=== PATIENT | female | born 2005 | race Caucasian/White ===

== ENCOUNTER 2023-09-11 19:02 | Emergency (ER) | payer MEDICAID, SELFPAY ==
[2023-09-11 19:38] VITALS: BP 125/75; PULSE 66; RESP 18; TEMP 36.9; O2SAT 99; BMI 36.4
--- NOTE | 2023-09-11 19:43 | PC.NURSE ---
checked on patient no needs at this time
--- NOTE | 2023-09-11 19:51 | [facility].EDGENADL ---
Discharge Plan Disposition Patient Disposition: Home, Self-Care Condition: Good Prescriptions Prescriptions: No Action No Known Home Medications Referrals Follow up/Referrals: Provider,Referral, MD [Primary Care Provider] - See instructions Activity Restrictions/Add. Instructions Additional Instructions/Restrictions: You were evaluated in the emergency department today. Please take Tylenol at home as needed for pain. Follow-up with your primary care provider. Also follow-up with [facility]. Make sure that you are staying hydrated. Return to the emergency department for new or worsening symptoms. Clinical Impressions Clinical Impression: Migraine Instructions Patient Instructions: DI for Migraine Discharge ED Provider: Ana Rosa Gomez General Adult HPI General Chief complaint: Headache Stated complaint: bad migraines Time Seen by Provider: 09/11/23 19:38 Mode of Arrival: Ambulatory Limitations: No Limitations Description of Symptoms (Recalled from ER Triage Doc. by RN): 17 year old female with complaints of migraine for the last week. States pain is on right side frontal area. Patient also c/o right sided abdominal pain, had a positive test on the of this month. History of Present Illness HPI narrative: This patient is a 17-year-old female with history of migraines who notes that she just recently had a positive test at home presenting to the emergency department with concern for 1 week of migraine. She states that it feels similar to her prior migraines. Her migraines are always on the right side frontal area. She also states she has had mild right upper abdominal pain with no fevers, chills, nausea, vomiting, or other concerns. No new symptoms, such as new vision changes, numbness, tingling, weakness, or other concerns. Patient states she ran out of medications at home that she had for her migraine. Related Data Home Medications Medication Instructions Recorded Confirmed No Known Home Medications 09/11/23 09/11/23 Allergies Allergy/AdvReac Type Severity Reaction Status Date / Time No Known Allergies Allergy Verified 09/11/23 19:46 [facility] Disclaimer: The information contained in this section may have been updated after the patient was seen, as this information can be updated by other users. Social History Smoking Status: Never smoker alcohol intake: never current occupational status: employed Travel in the last 8 weeks: None ROS Obtained: Yes All systems reviewed & no additional complaints except as documented Physical Exam General General appearance: alert and in no apparent distress Head Head exam: atraumatic and normocephalic Eye Eye exam: Present normal appearance, PERRL and EOMI ENT ENT exam: Present normal exam, normal oropharynx, mucous membranes moist and normal external ear exam Neck Neck exam: Present normal inspection, full ROM and trachea midline; Absent tenderness Chest Chest inspection: Present normal inspection and symmetric chest wall rise; Absent tenderness Respiratory Respiratory exam: Present normal lung sounds bilaterally; Absent respiratory distress, wheezes, stridor or accessory muscle use Cardiovascular Cardiovascular exam: Present regular rate and normal rhythm Abdominal Exam Abdominal exam: Present soft; Absent distention, tenderness or guarding Extremities Exam Extremities exam: Present normal inspection, full ROM and normal capillary refill; Absent tenderness or edema Back Exam Back exam: Present normal inspection and full ROM; Absent tenderness Neurological Exam Neurological exam: Present alert, oriented X3, CN II-XII intact and normal gait; Absent motor sensory deficit Psychiatric Psychiatric exam: Present normal affect and normal mood Skin Skin exam: Present warm and dry Medical Decision Making Medical Records Medical records reviewed: Yes I reviewed
[2023-09-11 20:40] LABS: Coronavirus 19, PCR Not Detected (NotDetected); Influenza A, PCR Not Detected (NotDetected); Influenza B, PCR Not Detected (NotDetected)
[2023-09-11 20:40] LABS: Microscopic, Urine URINE MICROSCOPIC (MICROSCOPIC)
[2023-09-11 20:47] LABS: Appearance,Urine CLEAR (Clear); Bilirubin,Urine Negative (Negative); Blood, Urine Negative (Negative); Color,Urine YELLOW (Yellow); Glucose,Urine (UA) Negative (Negative); Ketones,Urine Negative (Negative); Leukocyte Esterase,Urine Negative (Negative); Nitrate,Urine Negative (Negative); Protein,Urine Negative (Negative); Specific Gravity, Urine 1.015 (1.005-1.030)
[2023-09-11 20:48] LABS: Basophils # 0.1 K/mm3 (0-0.2); Basophils % 0.4 % (0.1-2.0); Eosinophils # 0.1 K/mm3 (0.0-0.4); Eosinophils % 0.8 % (0.1-12.0); Hemoglobin 12.9 g/dL (12.2-16.2); Lymphocytes # 2.5 K/mm3 (0.7-4.5); Lymphocytes % 19.6 % (10-50); Mean Corpuscular HGB Conc 33.9 g/dL (31.8-35.4); Mean Corpuscular Hemoglobin 30.1 pg (27.0-31.2); Mean Corpuscular Volume 88.9 fl (81-99); Monocytes # 0.6 K/mm3 (0.1-1.0); Monocytes % 5.1 % (1.7-9.3); Neutrophils # 9.2 K/mm3 (1.8-7.8); Platelet Count 296 K/mm3 (142-424); Red Blood Count 4.27 M/mm3 (4.20-5.40); Red Cell Distribution Width 13.3 % (11.5-17.5); White Blood Count 12.4 K/mm3 (4.5-13.0)
[2023-09-11 20:51] LABS: Chloride 106 mmol/L (98-107); Potassium 3.8 mmoL/L (3.5-5.1); Sodium 135 mmol/L (136-145)
[2023-09-11 20:53] LABS: Blood Urea Nitrogen 8 mg/dl (7-17); Creatinine Clearance Estimated 320 mL/min (50-200); Estimated Glomerular Filt Rate 159 ml/min (>60); GFR (African American) 192 ML/MIN (>60)
[2023-09-11 20:54] LABS: Alanine Aminotransferase 34 U/L (12-78); Albumin Level 4.4 g/dl (3.5-5.0); Albumin/Globulin Ratio 1.5 (1.1-1.8); Alkaline Phosphatase 49 U/L (38-126); Anion Gap 13.8 mEq/L (5-15); Aspartate Amino Transferase 32 U/L (14-36); Bilirubin,Total 0.4 mg/dl (0.2-1.3); Calcium 8.8 mg/dl (8.4-10.2); Carbon Dioxide 19 mmol/L (22.0-30.0); Glucose 95 mg/dl (74-100); Total Protein,Serum 7.4 g/dl (6.3-8.2)
[2023-09-11 21:03] LABS: Lipase 77 U/L (23-300)
[2023-09-11 21:11] LABS: Bacteria,Urine Trace /lpf
[2023-09-11 21:40] VITALS: BP 114/60; PULSE 55; RESP 20; TEMP 36.8; O2SAT 99
[2023-09-11 23:03] LABS: HCG,Quantitative 125050 mIU/ml (0-5.42)
== END 2023-09-11 21:49 | disposition home or self-care (01) ==
PROVIDERS: Emergency Provider Emergency Medicine
DX: O99.351 Diseases of the nervous system complicating pregnancy, first trimester (principal); O26.891 Other specified pregnancy related conditions, first trimester; G43.909 Migraine, unspecified, not intractable, without status migrainosus; R10.11 Right upper quadrant pain; Z3A.00 Weeks of gestation of pregnancy not specified
CPT/HCPCS: 80053; 81001; 83690; 84702; 85025; 87636; 96361; 96374; 96375; 99285; J0131; J2405